=== PATIENT | male | born 1955 | race Caucasian/White ===

== ENCOUNTER → 2021-03-14 | Day surgery (SDC) | payer MEDICARE, OTHER ==
[2021-03-13 09:21] LABS: BASOPHILS # (AUTO) 0.1 (0.0-0.1); BASOPHILS % 0.9 % (0.0-1.0); EOSINOPHILS # (AUTO) 0.3 (0.0-0.4); EOSINOPHILS % 3.4 % (0.0-6.0); HEMATOCRIT 45.2 % (38.2-49.6); HEMOGLOBIN 14.8 g/dL (14.0-18.0); LYMPHOCYTES # (AUTO) 1.6 (1.0-3.2); LYMPHOCYTES % 20.6 % (18.0-39.1); MEAN CORPUSCULAR HEMOGLOBIN 29.2 pg (28-32); MEAN CORPUSCULAR HGB CONC 32.7 g/dL (31-35); MEAN CORPUSCULAR VOLUME 89.3 fL (81-99); MONOCYTES # (AUTO) 0.6 (0.2-0.8); MONOCYTES % 8.2 % (4.4-11.3); NEUTROPHILS # (AUTO) 5.1 (2.1-6.9); NEUTROPHILS % 66.4 % (38.7-80.0); PLATELET COUNT 223 x10e3/uL (140-360); RED BLOOD COUNT 5.06 x10e6/uL (4.3-5.7); RED CELL DISTRIBUTION WIDTH 12.4 % (11.7-14.4)
[~2021-03-14] MED LIST: ACETAMINOPHEN 1000 MG/100 ML 100 ML IV ONE; CRESTOR10 MG PO; EPINEPHRINE 1 MG/ML 30ML VIAL ONE; HYDROCODON-ACE1 EA11 PO; IRBESARTAN150 MG PO; PHENYLEPHRINE HCL 1% 10 MG/ML VIAL IV ONE; SODIUM CHLORIDE 0.9% 50ML 100 ML ONE
[2021-03-14 12:31] VITALS: BP 136/74
== END | disposition home or self-care (01) ==
LOC: OR 06:55
PROVIDERS: ATTEND Specialist
DX: M75.111 Incomplete rotator cuff tear or rupture of right shoulder, not specified as traumatic (principal); M19.011 Primary osteoarthritis, right shoulder; S46.211A Strain of muscle, fascia and tendon of other parts of biceps, right arm, initial encounter; M65.811 Other synovitis and tenosynovitis, right shoulder; I10 Essential (primary) hypertension; E78.5 Hyperlipidemia, unspecified; I45.10 Unspecified right bundle-branch block; R00.1 Bradycardia, unspecified; X58.XXXA Exposure to other specified factors, initial encounter; Z88.6 Allergy status to analgesic agent; Z01.810 Encounter for preprocedural cardiovascular examination; Z01.812 Encounter for preprocedural laboratory examination; Z01.818 Encounter for other preprocedural examination; Z20.822 Contact with and (suspected) exposure to COVID-19
CPT/HCPCS: 29824; 29826; 29827; 36415; 71046; 85025; 93005; C1713; J0131; J0690; J2370; U0002

== ENCOUNTER 2021-06-21 10:00 | Outpatient (RCR) | payer MEDICARE, OTHER ==
[~2021-06-21 10:00] MED LIST changes: -ACETAMINOPHEN 1000 MG/100 ML 100 ML IV ONE; -EPINEPHRINE 1 MG/ML 30ML VIAL ONE; -PHENYLEPHRINE HCL 1% 10 MG/ML VIAL IV ONE; -SODIUM CHLORIDE 0.9% 50ML 100 ML ONE
== END 2021-06-22 ==
LOC: OT 10:00
PROVIDERS: ATTEND Specialist
DX: M75.111 Incomplete rotator cuff tear or rupture of right shoulder, not specified as traumatic (principal); M19.011 Primary osteoarthritis, right shoulder